=== PATIENT | female | born 1965 | race Caucasian/White ===

== ENCOUNTER → 2021-06-22 | Day surgery (SDC) | payer BC ==
[~2021-06-22] MED LIST: ASPIR 8181 MG PO; BIOTIN1 MG PO; COQ-10100 MG PO; LOPRESSOR25 PO; METOPROLOL SUCC25 M1 PO; OMEPRAZOLE40 MG PO; PLAVIX 75 MG TA75 M1 PO; ROSUVASTATIN CA20 MG PO
--- NOTE | ~2021-06-22 | OP ---
[facility] [address] [place] [address] OPERATIVE REPORT Name: JOSHUA ESCALANTE Room: [facility].#: [id number] Admission: 06/22/21 Attend Phys: Donato Hernandez Discharge: Date of : 67 Report #: [id number] THIS REPORT FOR: cc: Carlie Paige Anna S. DO Patterson,Donato Maier MD ~ DATE OF SURGERY: 06/22/2021 PREOPERATIVE DIAGNOSIS: Symptomatic cholelithiasis. POSTOPERATIVE DIAGNOSIS: Symptomatic cholelithiasis. OPERATION: Laparoscopic cholecystectomy. SURGEON: Donato Hernandez MD ANESTHESIA: General. ESTIMATED BLOOD LOSS: Minimal. SPECIMENS: Gallbladder. DESCRIPTION OF PROCEDURE: After informed consent was obtained, the patient was brought to the operating room and placed supine. SCDs were placed and working, preoperative antibiotics were administered, general anesthesia was induced. The abdomen was prepped and draped in the usual sterile fashion. A 10 mm incision was made below the umbilicus. Fascia was incised and a trocar was placed. Pneumoperitoneum was established. Three right upper quadrant 5 mm ports were placed. Gallbladder was grasped at the fundus and retracted cephalad. Infundibulum was grasped and retracted laterally. I dissected out the cystic duct and the cystic artery. The cystic plate was fully identified. Cystic duct and artery were clipped and ligated leaving a clip and a PDS Endoloop on the remaining duct and a clip on the remaining artery. Gallbladder was then taken off the liver bed with electrocautery. It was placed into an Endopouch and removed. The fascia was then closed with a [id number] 0 Vicryl. Skin was closed with 4-0 Monocryl. Incisions were dressed with Steri-Strips. COMPLICATIONS: None. DISPOSITION: The patient was taken to recovery in satisfactory condition. By: [id number] [id number] Hernandez MD /nt
[2021-06-22 06:41] LABS: HEMATOCRIT 42.6 % (37.0-47.0); HEMOGLOBIN 14.2 gm/dL (12.0-15.0); MCH 30.2 pg (26.0-34.0); MCHC 33.3 g/dL (28.0-37.0); MCV 90.7 fL (80.0-100.0); MPV 7.4 fl. (7.2-11.1); RBC 4.7 mil/uL (4.20-5.00); RDW-CV 13.7 % (10.5-14.5); WBC 7.9 thou/uL (4.0-11.0)
[2021-06-22 06:53] LABS: APTT 23.6 Seconds (25.0-31.3); PROTIME 9.8 Seconds (9.20-11.50)
[2021-06-22 06:59] LABS: CALCIUM 9.1 mg/dL (8.5-10.1); CREATININE 0.6 mg/dL (0.6-1.3); POTASSIUM 3.9 mmol/L (3.5-5.1)
[2021-06-22 07:03] LABS: TOTAL BILIRUBIN 0.6 mg/dL (<0.1-1.0); TOTAL PROTEIN 7.8 g/dL (6.4-8.2)
--- NOTE | 2021-06-23 15:13 | EKG ---
[place] [address] ELECTROCARDIOGRAM REPORT Name: JOSHUA ESCALANTE Room: [facility]#: [id number] Admission: 06/22/21 Attend Phys: Donato Montemayor Discharge: Date of : 67 Date of Service: 06/22/21 0639 Report #: [id number] THIS REPORT FOR: //name// [facility] Test Date: 2021-06-22 Test Time: 06:39:58 Pat Name: JOSHUA ESCALANTE Department: Room: Gender: F [employer] Service Advisor: : 1965 Requested By: Donato Hernandez Order Number: [id number] Reading MD: Socrates Solano Measurements Intervals [place] Rate: 72 P: 44 [place]: 153 QRS: 36 QRSD: 94 T: 27 QT: 386 QTc: 423 Interpretive Statements Sinus rhythm No previous ECG available for comparison Electronically Signed On 06-23-2021 15:13:07 BOTTLING LINE ATTENDANT by Socrates Solano [email or web address] <ELECTRONICALLY SIGNED> By: Socrates Solano MD, [facility] 06/23/21 1513 8 Socrates Solano MD, FACC /EPI
--- NOTE | 2021-06-27 14:07 | PATH ---
[facility] [address] [place] [address] PATHOLOGY RPT PROCEDURE Name: JOSHUA ESCALANTE Room: [facility]..#: [id number] Admission: 06/22/21 Date of : 67 Discharge: Report #: [id number] Path Case #: [id number] [facility] Accession Number: [id number] . 01 Material submitted: . gallbladder - GALLBLADDER WITH CONTENTS . 01 Clinical history: . LAPAROSCOPIC CHOLECYSTECTOMY CALCULUS OF GALLBLADDER . 02 Diagnosis: Gallbladder with contents: - Chronic follicular cholecystitis and cholelithiasis with benign and hyperplastic lymph node. (BECKA:prateek; 06/26/2021) MBR 06/26/2021 1545 Local . 02 Electronically signed: . Piter Curry MD, Pathologist NPI- [id number] . 01 Gross description: . Fixative: Formalin Labeled: Gallbladder with contents Specimen received: Intact gallbladder Dimensions: 9.7 x 4.1 x 4.0 cm Serosa: Blue-solitario Lymph node: 1.2 x 1.0 x 0.6 Mucosa: Velvety, bile-stained Average wall thickness: 0.1 cm Calculi: Present displaying a light brown and multifaceted appearance Abnormalities: None identified . 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 The lymph node is bisected and submitted in cassette A2. ([facility]AA; 06/25/2021) [facility] 06/25/2021 1146 Local . 02 Microscopic: . . . 02 Pathologist provided ICD-10: K80.10 . 02 CPT . 988834 Specimen Comment: A courtesy copy of this report has been sent to [phone], [place] [address] PATHOLOGY RPT PROCEDURE Name: GILDARDO ESCALANTEBERNADETTE YONATHAN Room: [facility]#: [id number] Admission: 06/22/21 Date of : 67 Discharge: Report #: [id number] Path Case #: [id number] Specimen Comment: [id number], Specimen Comment: Report sent to , DR KIRK / DR TORRES Specimen Comment: A duplicate report has been generated due to demographic updates. Performed at: [facility] [place] [facility] [address] [facility] [address], Fatou[place]ata Lau [place] [id number] MD Boo العراقي MD Phone: [phone] Performed at: [address] [address] [address], [place], [place] [id number] MD Piter Curry MD Phone: [phone]
== END | disposition home or self-care (01) ==
LOC: M.SUR 06:11
PROVIDERS: ATTEND Surgery
DX: K80.10 Calculus of gallbladder with chronic cholecystitis without obstruction (principal); R10.11 Right upper quadrant pain; G89.29 Other chronic pain; R59.0 Localized enlarged lymph nodes; I25.2 Old myocardial infarction; F17.210 Nicotine dependence, cigarettes, uncomplicated; Z98.890 Other specified postprocedural states; Z79.899 Other long term (current) drug therapy; Z20.822 Contact with and (suspected) exposure to COVID-19